=== PATIENT | female | born 1980 | race Caucasian/White ===

== ENCOUNTER 2017-02-13 12:06 | Emergency (ER) | payer OTHER, MEDICARE ==
[~2017-02-13] VITALS: Ht 167.6 cm; Wt 55.8 kg
--- NOTE | 2017-02-13 12:30 | PHYS DOC ---
Past History Past Medical History: Anxiety, Depression, GERD, Migraines, Other Past Surgical History: Hysterectomy, Tonsillectomy, Other Smoking: Non-smoker Alcohol Use: None Drug Use: None Adult General Chief Complaint Chief Complaint: LOWER EXT PAIN HPI HPI 36-year-old male patient states she had right hip arthroscopy surgery 4 days ago and developed right leg pain for the last 3 as a constant and mild and achy pain. Patient states her pain does not change with activity and denies shortness of breath, fever, focal neuro deficit, history of DVT and PE. Patient states she was seen by her physical therapist for the first time today and was recommended to come to ER for evaluation of leg pain. Review of Systems Review of Systems Constitutional: Denies fever or chills [] Eyes: Denies change in visual acuity, redness, or eye pain [] HENT: Denies nasal congestion or sore throat [] Respiratory: Denies cough or shortness of breath [] Cardiovascular: No additional information not addressed in HPI [] GI: Denies abdominal pain, nausea, vomiting, bloody stools or diarrhea [] : Denies dysuria or hematuria [] Musculoskeletal: Denies back pain, reports joint pain [] Integument: Denies rash or skin lesions [] Neurologic: Denies headache, focal weakness or sensory changes [] Endocrine: Denies polyuria or polydipsia [] All other systems were reviewed and found to be within normal limits, except as documented in this note. Allergies Allergies Allergies Coded Allergies Type Severity Reaction Last Updated Verified No Known Drug Allergies 10/22/15 No Physical Exam Physical Exam Constitutional: Well developed, well nourished, mild distress, non-toxic appearance. [] HENT: Normocephalic, atraumatic, bilateral external ears normal, oropharynx moist, no oral exudates, nose normal. [] Eyes: PERRLA, EOMI, conjunctiva normal, no discharge. [] Neck: Normal range of motion, no tenderness, supple, no stridor. [] Cardiovascular:Heart rate regular rhythm, no murmur [] Lungs & Thorax: Bilateral breath sounds clear to auscultation [] Skin: Warm, dry, no erythema, no rash. [] Extremities: Right lateral thigh with clean surgical scar with mild tenderness and limited range of motion of hip, right leg without edema or erythema or sign of injury, no calf tenderness, marked tenderness of anterior leg, no neurovascular deficit Neurologic: Alert and oriented X 3, normal motor function, normal sensory function, no focal deficits noted. [] Psychologic: Affect normal, judgement normal, mood normal. [] EKG EKG [] Radiology/Procedures Radiology/Procedures [] Course & Med Decision Making Course & Med Decision Making Pertinent Imaging studies reviewed. (See chart for details) Evaluation of patient in ER showed 36-year-old male patient with right lower extremity pain after recent surgery. Patient had unremarkable physical exam without calf tenderness and ultrasound of lower extremity did not show DVT. Patient instructed to continue home medications and follow up with her surgeon as needed. [] Dragon Disclaimer Dragon Disclaimer This electronic medical record was generated, in whole or in part, using a voice recognition dictation system. Departure Departure: Impression: Primary Impression: Post-op pain Disposition: 01 HOME, SELF-CARE (At 1327) Condition: IMPROVED Referrals: ARIEL KIRKLAND APRN (PCP) Patient Instructions: Pain Relief Preoperatively and Postoperatively Additional Instructions: Follow-up with your surgeon as needed REYES FULLER MD Feb 13, 2017 12:30
--- NOTE | 2017-02-13 13:25 | RAD ---
Clinical Indication: Right lower extremity pain after surgery Technique: Study is dated February 13, 2017. Grayscale, color flow and spectral waveform analysis was performed of the right lower extremity with and without compression. Findings: There is normal compressibility of all visualized vein segments. No evidence of DVT is present on grayscale or color images. There is normal phasicity of waveform. There is normal augmentation. Impression: No evidence of deep vein thrombosis.
[2017-02-13 13:34] VITALS: BP 97/67
== END 2017-02-13 13:34 | disposition home or self-care (01) ==
LOC: ER 12:06
DX: G89.18 Other acute postprocedural pain (principal); M79.604 Pain in right leg; K21.9 Gastro-esophageal reflux disease without esophagitis; F32.9 Major depressive disorder, single episode, unspecified; F41.9 Anxiety disorder, unspecified; G43.909 Migraine, unspecified, not intractable, without status migrainosus; Z98.890 Other specified postprocedural states
CPT/HCPCS: 93971; 99284-25

== ENCOUNTER → 2017-02-24 | Outpatient (CLI) | payer MEDICARE, OTHER ==
[2017-02-13 13:34] VITALS: BP 97/67
[~2017-02-24] MED LIST: BUPIVACAINE MPF 0.25% 10 ML VIAL. ONE; methylPREDNISolone ACETATE 40 MG/ML VIAL. ONE
== END | disposition home or self-care (01) ==
LOC: SURG 09:22
PROVIDERS: ATTEND Anesthesiology Pain Medicine
DX: M79.1 Myalgia (principal); M79.2 Neuralgia and neuritis, unspecified; K44.9 Diaphragmatic hernia without obstruction or gangrene; M19.90 Unspecified osteoarthritis, unspecified site; K21.9 Gastro-esophageal reflux disease without esophagitis; Z98.51 Tubal ligation status; Z90.710 Acquired absence of both cervix and uterus
CPT/HCPCS: 20553; 64450; J1030; J3490

== ENCOUNTER 2017-08-06 12:05 | Emergency (ER) | payer MEDICARE, OTHER ==
--- NOTE | 2017-08-06 13:27 | PHYS DOC ---
Past History Past Medical History: Anxiety, Depression, GERD, Migraines, Other Past Surgical History: Hysterectomy, Tonsillectomy, Tubal ligation, Other Smoking: Non-smoker Alcohol Use: None Drug Use: None Adult General Chief Complaint Chief Complaint: COUGH HPI HPI 36-year-old female presents with one-week history of cough. The patient states the cough was productive until yesterday. She had a greenish mucus. She was running a fever up to 100.8 but that is improved. She presents today because now she has "long expiratory cough like an old person". She is just concerned and the change in character of her cough. She does have albuterol at home but only takes it in the morning and at night. She has no official history of asthma. She was originally given an inhaler when she had another cough for multiple weeks. She does get a cough that can last 2-8 weeks on occasion. She is not a smoker. She is not exposed to smoke. She denies any other symptoms of illness. Review of Systems Review of Systems Constitutional: Denies fever or chills [] Eyes: Denies change in visual acuity, redness, or eye pain [] HENT: Denies nasal congestion or sore throat [] Respiratory: Cough[] Cardiovascular: No additional information not addressed in HPI [] GI: Denies abdominal pain, nausea, vomiting, bloody stools or diarrhea [] : Denies dysuria or hematuria [] Musculoskeletal: Denies back pain or joint pain [] Integument: Denies rash or skin lesions [] Neurologic: Denies headache, focal weakness or sensory changes [] Endocrine: Denies polyuria or polydipsia [] All other systems were reviewed and found to be within normal limits, except as documented in this note. Current Medications Current Medications Current Medications Medications (Trade) Dose Ordered Sig/Fitz Start Time Stop Time Status Last Admin Dose Admin Albuterol/ Ipratropium (Duoneb) 3 ml 1X ONCE 08/06/17 13:30 08/06/17 13:31 UNV Allergies Allergies Allergies Coded Allergies Type Severity Reaction Last Updated Verified No Known Drug Allergies 10/22/15 No Physical Exam Physical Exam Constitutional: Well developed, well nourished, no acute distress, non-toxic appearance. [] HENT: Normocephalic, atraumatic, bilateral external ears normal, oropharynx moist, no oral exudates, nose normal. [] Eyes: PERRLA, EOMI, conjunctiva normal, no discharge. [] Neck: Normal range of motion, no tenderness, supple, no stridor. [] Cardiovascular:Heart rate regular rhythm, no murmur [] Lungs & Thorax: Mild expiratory wheeze at the right base.[] Abdomen: Bowel sounds normal, soft, no tenderness, no masses, no pulsatile masses. [] Skin: Warm, dry, no erythema, no rash. [] Back: No tenderness, no CVA tenderness. [] Extremities: No tenderness, no cyanosis, no clubbing, ROM intact, no edema. [] Neurologic: Alert and oriented X 3, normal motor function, normal sensory function, no focal deficits noted. [] Psychologic: Affect normal, judgement normal, mood normal. [] EKG EKG [] Radiology/Procedures Radiology/Procedures CHEST PA LATERAL Clinical indications: Cough x 1 week, pt shielded COMPARISON: None available. Findings: Hyperinflation is seen consistent with COPD. No acute lung infiltrate or pleural effusion or pulmonary edema or lung mass or pneumothorax is seen. The heart size, pulmonary vasculature, mediastinum and both patria are unremarkable. The osseous structures appear intact. Impression: No acute radiographic abnormality is seen. Electronically signed by: Eduardo Pearson MD (08/06/2017 2:03 PM) [facility][] Course & Med Decision Making Course & Med Decision Making Pertinent Labs and Imaging studies reviewed. (See chart for details) Patient's chest x-ray is unremarkable. I gave her a DuoNeb treatment see if this will help. I believe the patient is just having continuing complications of her viral illness. I she is having bronchospasm and should use her albuterol every 4 hours for the next 1-2 days. [] Dragon Disclaimer Dragon Disclaimer This electronic medical record was generated, in whole or in part, using a voice recognition dictation system. Departure Departure: Referrals: VIVEK REED (PCP) KRISTIAN SMITH DO Aug 06, 2017 13:27
--- NOTE | 2017-08-06 14:06 | RAD ---
CHEST PA LATERAL Clinical indications: Cough x 1 week, pt shielded COMPARISON: None available. Findings: Hyperinflation is seen consistent with COPD. No acute lung infiltrate or pleural effusion or pulmonary edema or lung mass or pneumothorax is seen. The heart size, pulmonary vasculature, mediastinum and both patria are unremarkable. The osseous structures appear intact. Impression: No acute radiographic abnormality is seen. Electronically signed by: Eduardo Pearson MD (08/06/2017 2:03 PM) [facility]
[2017-08-06] MEDS: IPRATRPIUM/ALBUTEROL 0.5/2.5MG 3 ML NEBU. NEB ONE (14:08)
[2017-08-06 14:18] VITALS: BP 107/70
[2017-08-06] MEDS ORDERED: ALBU18HF IH (14:23)
== END 2017-08-06 14:23 | disposition home or self-care (01) ==
LOC: ER 12:05
DX: B34.9 Viral infection, unspecified (principal); K21.9 Gastro-esophageal reflux disease without esophagitis; G43.909 Migraine, unspecified, not intractable, without status migrainosus; F41.9 Anxiety disorder, unspecified; F32.9 Major depressive disorder, single episode, unspecified
CPT/HCPCS: 71046; 94640; 99284; J7620